=== PATIENT | female | born 1940 | race Two or more races ===

== ENCOUNTER → 2019-12-21 | Outpatient (CLI) | payer OTHER | END | disposition home or self-care (01) | LOC: NUCLEAR 07:00 | PROVIDERS: ATTEND Internal Medicine Cardiovascular Disease | DX: R07.89 Other chest pain (principal); I10 Essential (primary) hypertension | CPT/HCPCS: 78452; 93017; A9500; J0153 ==

== ENCOUNTER 2020-08-06 12:31 | Outpatient (CLI) | payer OTHER | END 2020-08-06 18:00 | disposition home or self-care (01) | LOC: PPH VACUNA 12:31 | PROVIDERS: ATTEND Emergency Medicine Pediatric Emergency Medicine | DX: Z23 Encounter for immunization (principal) ==

== ENCOUNTER → 2021-04-14 06:13 | Outpatient (CLI) | payer OTHER | END | disposition home or self-care (01) | LOC: LAB 06:13 | PROVIDERS: ATTEND Internal Medicine Cardiovascular Disease | DX: I10 Essential (primary) hypertension (principal); E11.9 Type 2 diabetes mellitus without complications; E03.8 Other specified hypothyroidism; E78.2 Mixed hyperlipidemia ==

== ENCOUNTER → 2021-04-23 | Outpatient (CLI) | payer OTHER | END | disposition home or self-care (01) | LOC: PPH VACUNA 08:20 | PROVIDERS: ATTEND Emergency Medicine Pediatric Emergency Medicine | DX: Z23 Encounter for immunization (principal) ==

== ENCOUNTER 2021-10-26 08:00 | Outpatient (CLI) | payer OTHER | END 2021-10-26 08:30 | disposition home or self-care (01) | LOC: PPH VACUNA 08:00 | PROVIDERS: ATTEND Emergency Medicine Pediatric Emergency Medicine | DX: Z23 Encounter for immunization (principal) ==

== ENCOUNTER 2022-04-19 10:44 | Outpatient (CLI) | payer OTHER | END 2022-04-19 10:54 | disposition home or self-care (01) | LOC: PPH VACUNA 10:44 | PROVIDERS: ATTEND Emergency Medicine Pediatric Emergency Medicine | DX: Z23 Encounter for immunization (principal) ==